=== PATIENT | male | born 1965 ===

== ENCOUNTER 2017-07-26 12:59 | Observation (INO) | payer SELFPAY ==
[2017-07-26] MEDS ORDERED: Aspirin 325 mg EC Tablets PO STA (13:18)
[2017-07-26 13:35] LABS: BASO % 0.3 % (0.0-2.0); EOS % 0.2 % (0.0-4.0); HEMOGLOBIN 15.1 g/dL (12.0-18.0); MEAN CORPUSCULAR HEMOGLOBIN 30.7 pg (27.0-31.0); MEAN CORPUSCULAR HGB CONC 34.8 g/dL (33.0-37.0); MEAN PLATELET VOLUME 11.1 fL (7.2-11.7); MONO # 0.3 K/uL (0.0-0.8); MONO % 5.7 % (0.0-10.0); NEUT # 4.1 K/uL (1.8-7.0); NEUT % 74.8 % (50.0-75.0); RBC 4.92 Mil/uL (4.40-5.90); RED CELL DISTRIBUTION WIDTH 13.1 % (11.5-14.5); WHITE BLOOD COUNT 5.5 K/uL (4.8-10.8)
[2017-07-26 13:47] LABS: ALB/GLOB RATIO 1.3 (1.0-2.1); ALBUMIN 4.3 g/dL (3.5-5.0); ALT/SGPT 24 U/L (21-72); AST/SGOT 30 U/L (17-59); BLOOD UREA NITROGEN 18 mg/dL (9-20); CALCIUM 8.7 mg/dl (8.6-10.4); GFR AFRICAN-AMERICAN > 60; GFR NON-AFRICAN AMERICAN > 60; LIPASE 124 U/L (23-300)
[2017-07-26 13:57] LABS: D DIMER < 200 ng/mlDDU (0-243); INR 0.9; PARTIAL THROMBOPLASTIN TIME 29 SECONDS (21-34); PROTHROMBIN TIME 10.7 SECONDS (9.7-12.2)
[2017-07-26 13:58] LABS: B-TYPE NATRIURETIC PEPTIDE 25.5 pg/mL (0-450)
--- NOTE | 2017-07-26 14:01 | RAD ---
PROCEDURE: CHEST RADIOGRAPH, 1 VIEW HISTORY: chest pain COMPARISON: There is no prior similar study available for comparison FINDINGS: LUNGS: There is no evidence of focal infiltrate or consolidation in the lungs PLEURA: No pneumothorax or pleural fluid seen. CARDIOVASCULAR: Normal. OSSEOUS STRUCTURES: No significant abnormalities. VISUALIZED UPPER ABDOMEN: Normal. OTHER FINDINGS: None. IMPRESSION: No active disease.
[2017-07-26] MEDS ORDERED: Sodium Chloride 0.9% 1,000 ML IV ONE (14:13)
[2017-07-26] MEDS ORDERED: Sodium Chloride 0.9% 1,000 ML ONE (14:26)
[2017-07-26 14:41] LABS: FREE T4 1.03 ng/dL (0.78-2.19)
[2017-07-26 14:49] LABS: URINE BILIRUBIN NEGATIVE (NEGATIVE); URINE BLOOD NEGATIVE (NEGATIVE); URINE CLARITY Clear (Clear); URINE COLOR Yellow (YELLOW); URINE GLUCOSE (UA) 1+ mg/dL (Normal); URINE LEUKOCYTE ESTERASE NEG Leu/uL (Negative); URINE PROTEIN NEGATIVE (NEGATIVE)
[2017-07-26 15:11] LABS: BARBITURATES, UR NEGATIVE (NEGATIVE); BENZODIAZEPINES, UR NEGATIVE (NEGATIVE); OPIATES, UR NEGATIVE (NEGATIVE); PHENCYCLIDINE, UR NEGATIVE (NEGATIVE)
--- NOTE | 2017-07-26 15:37 | C.PDOC ---
Time Seen by Provider: 07/26/17 13:12 Chief Complaint (Nursing): Chest Pain History Per: Patient Onset/Duration Of Symptoms: Hrs (since this morning) Current Symptoms Are (Timing): Still Present Severity: Moderate Quality: "Pain" Associated Symptoms: denies: Syncope Additional History Per: Prior Records Past Medical History Reviewed: Historical Data, Nursing Documentation, Vital Signs Vital Signs: Last Vital Signs Temp 99.4 F 07/26/17 13:02 Pulse 98 H 07/26/17 15:28 Resp 18 07/26/17 15:28 BP 131/76 07/26/17 15:28 Pulse Ox 98 07/26/17 15:37 - Medical History PMH: No Chronic Diseases Surgical History: No Surg Hx - [facility] Procedures CLOSURE SKIN & SUBCUTANEOUS NEC (04/20/14) Family History: States: Unknown Family Hx - Social History Hx Tobacco Use: No Hx Alcohol Use: Yes Hx Substance Use: No - Immunization History Hx Tetanus Toxoid Vaccination: No Hx Influenza Vaccination: No Hx Pneumococcal Vaccination: No Review Of Systems Except As Marked, All Systems Reviewed And Found Negative. Constitutional: Negative for: Fever, Weakness Cardiovascular: Positive for: Chest Pain Respiratory: Negative for: Shortness of Breath, Hemoptysis Gastrointestinal: Negative for: Vomiting, Abdominal Pain Musculoskeletal: Negative for: Neck Pain, Back Pain, Leg Pain Skin: Negative for: Rash Neurological: Negative for: Weakness, Numbness Physical Exam - Physical Exam Appears: Non-toxic, No Acute Distress Skin: Normal Color, Warm, Dry, No Rash Head: Atraumatic, Normacephalic Eye(s): bilateral: Normal Inspection, PERRL, EOMI Neck: Normal ROM, Supple Cardiovascular: Rhythm Regular (tachycardia) Respiratory: Normal Breath Sounds, No Accessory Muscle Use Gastrointestinal/Abdominal: Soft, No Tenderness Back: No CVA Tenderness Extremity: Normal ROM, No Pedal Edema, No Calf Tenderness Neurological/Psych: Oriented x3, Normal Motor, Normal Sensation ED Course And Treatment - Laboratory Results Result Diagrams: 07/26/17 13:30 07/26/17 13:30 Lab Interpretation: No Acute Changes ECG: Interpreted By Me, Viewed By Me ECG Rhythm: Sinus Tachycardia Rate From EC O2 Sat by Pulse Oximetry: 98 Pulse Ox Interpretation: Normal - Radiology CXR: Viewed By Me, Read By Radiologist CXR Interpretation: Yes: No Acute Disease Progress Note: Pt is no longer tachycardic. Chest pain mostly resolved. Reevaluation Time: 15:30 Reassessment Condition: Improved Progress - Interventions Interventions:: Observation, Intravenous fluid, Oxygen - Medications Administered Oral: Aspirin - Data Reviewed Data Reviewed: Lab, Diagnostic imaging, EKG, Old records - Patient Status Patient status: Mostly improved - Continuity of Care Discussed patient case with:: Patient, ED Nurse Disposition Discussed With : Zeus Hollingsworth Comment: He accepted pt on his service. Doctor Will See Patient In The: Hospital Counseled Patient/Family Regarding: Studies Performed, Diagnosis - Disposition Disposition: HOSPITALIZED Disposition Time: 15:41 Condition: FAIR - Clinical Impression Clinical Impression: Acute chest pain
--- NOTE | 2017-07-26 16:29 | CP.PCM.HP ---
<Rut Murray - Last Filed: 07/26/17 16:50> History of Present Illness - History of Present Illness History of Present Illness: CC - "Chest pressure" HPI - 51 year old male with no past medical history presents today complaining of chest pressure which started this morning at 8:30 AM while he was getting ready for the day in his bathroom. He states this is the first time he has had this chest pressure. Nothing makes it better or worse but states it has decreased in nature since arriving to the ED. Patient denies radiation of the pressure. Denies palpitations, N/V, diaphoresis, pain in the arms or jaw, and denies shortness of breath. He states she can walk many blocks, use his bicycle and climb the states without having this chest pressure or becoming short of breath. Patient states she has not seen a doctor or had his bloodwork checked in a long time. Patient has a history of binge drinking alcohol. He states his last drink was yesterday evening and that he had 3 beers. He states he drinks alcohol 3-4 times a week. He states he does not get any withdrawal symptoms if he does not drink alcohol. PMHx - denies Meds - none Allergies - NKDA Famhx - father prediabetic had prostate cancer, and mother was prediabetic Surg - denies Social hx - patient smoke one pack of cigarettes a day for 5 years quit 2-3 months ago, Drinks beers about 3-4 times a week (last drink last night, denies withdrawal symptoms, denies drug use PMD - none Present on Admission - Present on Admission Any Indicators Present on Admission: No Review of Systems - Constitutional Constitutional: absent: Chills, Fever - EENT Eyes: absent: Blurred Vision, Change in Vision - Cardiovascular Cardiovascular: Chest Pain. absent: Chest Pain at Rest, Leg Edema, Palpitations , Pedal Edema, Syncope - Respiratory Respiratory: absent: Cough, Dyspnea, Dyspnea on Exertion - Gastrointestinal Gastrointestinal: absent: Constipation, Diarrhea, Nausea, Vomiting - Genitourinary Genitourinary: absent: Change in Urinary Stream, Difficulty Urinating - Musculoskeletal Musculoskeletal: absent: Numbness, Tingling Past Patient History - Tetanus Immunizations Tetanus Immunization: Unknown - Past Social History Smoking Status: Light Smoker < 10 Cigarettes Daily - HEENT Hx Blind: Yes (Blind Lt. eye) - PSYCHIATRIC Hx Substance Use: No - SURGICAL HISTORY Hx Surgeries: No - ANESTHESIA Hx Anesthesia: No Hx Anesthesia Reactions: No Meds Allergies/Adverse Reactions: Allergies Allergy/AdvReac Type Severity Reaction Status Date / Time No Known Allergies Allergy Verified 07/26/17 13:07 Physical Exam - Constitutional Appears: Non-toxic, No Acute Distress - Head Exam Head Exam: ATRAUMATIC, NORMAL INSPECTION - Eye Exam Eye Exam: EOMI, PERRL Pupil Exam: NORMAL ACCOMODATION - ENT Exam ENT Exam: Mucous Membranes Moist - Respiratory Exam Respiratory Exam: Clear to Auscultation Bilateral, NORMAL BREATHING PATTERN. absent: Respiratory Distress - Cardiovascular Exam Cardiovascular Exam: Tachycardia, REGULAR RHYTHM, +S1, +S2 - GI/Abdominal Exam GI & Abdominal Exam: Normal Bowel Sounds, Soft. absent: Distended, Firm, Guarding, Tenderness - Extremities Exam Extremities exam: Positive for: normal inspection. Negative for: calf tenderness, pedal edema - Back Exam Back exam: NORMAL INSPECTION. absent: CVA tenderness (L), CVA tenderness (R), paraspinal tenderness - Neurological Exam Neurological exam: Alert, Oriented x3 - Psychiatric Exam Psychiatric exam: Normal Affect, Normal Mood - Skin Skin Exam: Intact, Normal Color, Warm Additional comments: mildly flushed Results - Vital Signs Recent Vital Signs: Last Vital Signs Temp 98.9 F 07/26/17 16:15 Pulse 81 07/26/17 16:15 Resp 17 07/26/17 16:15 BP 131/76 07/26/17 15:28 Pulse Ox 98 07/26/17 16:15 - Labs Result Diagrams: 07/26/17 13:30 07/26/17 13:30 Labs: Laboratory Results - last 24 hr 07/26/17 07/26/17 07/26/17 13:30 13:30 13:30 WBC 5.5 RBC 4.92 Hgb 15.1 Hct 43.3 MCV 88.0 MCH 30.7 MCHC 34.8 RDW 13.1 Plt Count 172 MPV 11.1 Neut % (Auto) 74.8 Lymph % (Auto) 19.0 L [place] % (Auto) 5.7 Eos % (Auto) 0.2 Baso % (Auto) 0.3 Neut # (Auto) 4.1 Lymph # (Auto) 1.0 [place] # (Auto) 0.3 Eos # (Auto) 0.0 Baso # (Auto) 0.0 PT 10.7 INR 0.9 APTT 29 D-Dimer, Quantitative < 200 Sodium 146 Potassium 3.6 Chloride 106 Carbon Dioxide 25 Anion Gap 19 BUN 18 Creatinine 0.8 Est GFR ( Amer) > 60 Est GFR (Non-Af Amer) > 60 Random Glucose 162 H Calcium 8.7 Total Bilirubin 0.7 AST 30 ALT 24 Alkaline Phosphatase 78 Troponin I < 0.0120 NT-Pro-B Natriuret Pep 25.5 Total Protein 7.6 Albumin 4.3 Globulin 3.4 Albumin/Globulin Ratio 1.3 Lipase 124 Free T4 TSH 3rd Generation Urine Color Urine Clarity Urine pH Ur Specific [place] Urine Protein Urine Glucose (UA) Urine Ketones Urine Blood Urine Nitrate Urine Bilirubin Urine Urobilinogen Ur Leukocyte Esterase Urine WBC (Auto) Urine RBC (Auto) Urine Opiates Screen Urine Methadone Screen Ur Barbiturates Screen Ur Phencyclidine Scrn Ur Amphetamines Screen U Benzodiazepines Scrn U Oth Cocaine Metabols U Cannabinoids Screen Alcohol, Quantitative < 10 07/26/17 07/26/17 07/26/17 13:38 14:49 15:09 WBC RBC Hgb Hct MCV MCH MCHC RDW Plt Count MPV Neut % (Auto) Lymph % (Auto) [place] % (Auto) Eos % (Auto) Baso % (Auto) Neut # (Auto) Lymph # (Auto) [place] # (Auto) Eos # (Auto) Baso # (Auto) PT INR APTT D-Dimer, Quantitative Sodium Potassium Chloride Carbon Dioxide Anion Gap BUN Creatinine Est GFR ( Amer) Est GFR (Non-Af Amer) Random Glucose Calcium Total Bilirubin AST ALT Alkaline Phosphatase Troponin I NT-Pro-B Natriuret Pep Total Protein Albumin Globulin Albumin/Globulin Ratio Lipase Free T4 1.03 TSH 3rd Generation 0.65 Urine Color Yellow Urine Clarity Clear Urine pH 5.0 Ur Specific [place] 1.025 Urine Protein Negative Urine Glucose (UA) 1+ H Urine Ketones Trace Urine Blood Negative Urine Nitrate Negative Urine Bilirubin Negative Urine Urobilinogen 2.0 Ur Leukocyte Esterase Neg Urine WBC (Auto) < 1 Urine RBC (Auto) 1 Urine Opiates Screen Negative Urine Methadone Screen Negative Ur Barbiturates Screen Negative Ur Phencyclidine Scrn Negative Ur Amphetamines Screen Negative U Benzodiazepines Scrn Negative U Oth Cocaine Metabols Negative U Cannabinoids Screen Negative Alcohol, Quantitative Assessment & Plan - Assessment and Plan (Free Text) Assessment: Chest pressure r/o ACS EKG - sinus tachycardia no ST changes Trop #1 - negative, will trend given 325mg ASA in the ED Chest X ray - no active disease TSH wnl f/u am labs, HbA1c, lipid panel Elevated blood sugar level no hx of diabetes f/u HbA1c Hx Alcohol Use UDS negative Alcohol <10 Last drink was last night Thiamine/Folic Acid/MV seizure precautions/CIWA monitor for signs of withdrawal Prophylaxis Patient is ambulating, SCDs GI - not indicated Heart healthy mod consistne carb diet Dispo: likely home tomorrow pending [facility]ONA <Zaki Tucker - Last Filed: 07/27/17 11:47> Results - Vital Signs Recent Vital Signs: Last Vital Signs Temp 97.5 F L 07/27/17 07:00 Pulse 83 07/27/17 07:57 Resp 18 07/27/17 07:00 BP 139/67 07/27/17 07:00 Pulse Ox 98 07/27/17 07:00 - Labs Result Diagrams: 07/27/17 02:38 07/27/17 02:38 Labs: Laboratory Results - last 24 hr 07/26/17 07/26/17 07/26/17 13:30 13:30 13:30 WBC 5.5 RBC 4.92 Hgb 15.1 Hct 43.3 MCV 88.0 MCH 30.7 MCHC 34.8 RDW 13.1 Plt Count 172 MPV 11.1 Neut % (Auto) 74.8 Lymph % (Auto) 19.0 L [place] % (Auto) 5.7 Eos % (Auto) 0.2 Baso % (Auto) 0.3 Neut # (Auto) 4.1 Lymph # (Auto) 1.0 [place] # (Auto) 0.3 Eos # (Auto) 0.0 Baso # (Auto) 0.0 PT 10.7 INR 0.9 APTT 29 D-Dimer, Quantitative < 200 Sodium 146 Potassium 3.6 Chloride 106 Carbon Dioxide 25 Anion Gap 19 BUN 18 Creatinine 0.8 Est GFR ( Amer) > 60 Est GFR (Non-Af Amer) > 60 Random Glucose 162 H Hemoglobin A1c Calcium 8.7 Phosphorus Magnesium Total Bilirubin 0.7 AST 30 ALT 24 Alkaline Phosphatase 78 Total Creatine Kinase CK-MB (Mass) Troponin I < 0.0120 NT-Pro-B Natriuret Pep 25.5 Total Protein 7.6 Albumin 4.3 Globulin 3.4 Albumin/Globulin Ratio 1.3 Triglycerides Cholesterol LDL Cholesterol Direct HDL Cholesterol Lipase 124 Vitamin B12 25-OH Vitamin D Total Folate Free T4 TSH 3rd Generation Urine Color Urine Clarity Urine pH Ur Specific [place] Urine Protein Urine Glucose (UA) Urine Ketones Urine Blood Urine Nitrate Urine Bilirubin Urine Urobilinogen Ur Leukocyte Esterase Urine WBC (Auto) Urine RBC (Auto) Urine Opiates Screen Urine Methadone Screen Ur Barbiturates Screen Ur Phencyclidine Scrn Ur Amphetamines Screen U Benzodiazepines Scrn U Oth Cocaine Metabols U Cannabinoids Screen Alcohol, Quantitative < 10 07/26/17 07/26/17 07/26/17 13:38 14:49 15:09 WBC RBC Hgb Hct MCV MCH MCHC RDW Plt Count MPV Neut % (Auto) Lymph % (Auto) [place] % (Auto) Eos % (Auto) Baso % (Auto) Neut # (Auto) Lymph # (Auto) [place] # (Auto) Eos # (Auto) Baso # (Auto) PT INR APTT D-Dimer, Quantitative Sodium Potassium Chloride Carbon Dioxide Anion Gap BUN Creatinine Est GFR ( Amer) Est GFR (Non-Af Amer) Random Glucose Hemoglobin A1c Calcium Phosphorus Magnesium Total Bilirubin AST ALT Alkaline Phosphatase Total Creatine Kinase CK-MB (Mass) Troponin I NT-Pro-B Natriuret Pep Total Protein Albumin Globulin Albumin/Globulin Ratio Triglycerides Cholesterol LDL Cholesterol Direct HDL Cholesterol Lipase Vitamin B12 25-OH Vitamin D Total Folate Free T4 1.03 TSH 3rd Generation 0.65 Urine Color Yellow Urine Clarity Clear Urine pH 5.0 Ur Specific [place] 1.025 Urine Protein Negative Urine Glucose (UA) 1+ H Urine Ketones Trace Urine Blood Negative Urine Nitrate Negative Urine Bilirubin Negative Urine Urobilinogen 2.0 Ur Leukocyte Esterase Neg Urine WBC (Auto) < 1 Urine RBC (Auto) 1 Urine Opiates Screen Negative Urine Methadone Screen Negative Ur Barbiturates Screen Negative Ur Phencyclidine Scrn Negative Ur Amphetamines Screen Negative U Benzodiazepines Scrn Negative U Oth Cocaine Metabols Negative U Cannabinoids Screen Negative Alcohol, Quantitative 07/26/17 07/26/17 07/26/17 20:01 20:01 20:01 WBC RBC Hgb Hct MCV MCH MCHC RDW Plt Count MPV Neut % (Auto) Lymph % (Auto) [place] % (Auto) Eos % (Auto) Baso % (Auto) Neut # (Auto) Lymph # (Auto) [place] # (Auto) Eos # (Auto) Baso # (Auto) PT INR APTT D-Dimer, Quantitative Sodium Potassium Chloride Carbon Dioxide Anion Gap BUN Creatinine Est GFR ( Amer) Est GFR (Non-Af Amer) Random Glucose Hemoglobin A1c 5.6 Calcium Phosphorus 3.1 Magnesium 2.2 Total Bilirubin AST ALT Alkaline Phosphatase Total Creatine Kinase 77 CK-MB (Mass) 0.84 Troponin I < 0.0120 NT-Pro-B Natriuret Pep Total Protein Albumin Globulin Albumin/Globulin Ratio Triglycerides 83 Cholesterol 158 LDL Cholesterol Direct 92 HDL Cholesterol 55 Lipase Vitamin B12 251 25-OH Vitamin D Total 16.8 L Folate > 20.0 Free T4 TSH 3rd Generation Urine Color Urine Clarity Urine pH Ur Specific [place] Urine Protein Urine Glucose (UA) Urine Ketones Urine Blood Urine Nitrate Urine Bilirubin Urine Urobilinogen Ur Leukocyte Esterase Urine WBC (Auto) Urine RBC (Auto) Urine Opiates Screen Urine Methadone Screen Ur Barbiturates Screen Ur Phencyclidine Scrn Ur Amphetamines Screen U Benzodiazepines Scrn U Oth Cocaine Metabols U Cannabinoids Screen Alcohol, Quantitative 07/27/17 07/27/17 02:38 02:38 WBC 6.3 RBC 4.46 Hgb 13.6 Hct 39.5 MCV 88.6 MCH 30.5 MCHC 34.4 RDW 13.0 Plt Count 132 MPV 10.8 Neut % (Auto) 53.6 Lymph % (Auto) 36.0 [place] % (Auto) 8.5 Eos % (Auto) 1.6 Baso % (Auto) 0.3 Neut # (Auto) 3.4 Lymph # (Auto) 2.3 [place] # (Auto) 0.5 Eos # (Auto) 0.1 Baso # (Auto) 0.0 PT INR APTT D-Dimer, Quantitative Sodium 142 Potassium 3.7 Chloride 105 Carbon Dioxide 26 Anion Gap 14 BUN 18 Creatinine 0.8 Est GFR ( Amer) > 60 Est GFR (Non-Af Amer) > 60 Random Glucose 91 Hemoglobin A1c Calcium 8.3 L Phosphorus Magnesium Total Bilirubin 0.8 AST 23 ALT 22 Alkaline Phosphatase 60 Total Creatine Kinase 70 CK-MB (Mass) 0.76 Troponin I < 0.0120 NT-Pro-B Natriuret Pep Total Protein 6.4 Albumin 3.5 Globulin 3.0 Albumin/Globulin Ratio 1.2 Triglycerides Cholesterol LDL Cholesterol Direct HDL Cholesterol Lipase Vitamin B12 25-OH Vitamin D Total Folate Free T4 TSH 3rd Generation Urine Color Urine Clarity Urine pH Ur Specific [place] Urine Protein Urine Glucose (UA) Urine Ketones Urine Blood Urine Nitrate Urine Bilirubin Urine Urobilinogen Ur Leukocyte Esterase Urine WBC (Auto) Urine RBC (Auto) Urine Opiates Screen Urine Methadone Screen Ur Barbiturates Screen Ur Phencyclidine Scrn Ur Amphetamines Screen U Benzodiazepines Scrn U Oth Cocaine Metabols U Cannabinoids Screen Alcohol, Quantitative Attending/Attestation - Attestation I have personally seen and examined this patient.: Yes I have fully participated in the care of the patient.: Yes I have reviewed all pertinent clinical information: Yes Notes (Text): Patient was seen and examined by in the ER. Patient was lying comfortable,no distress and his heart rate improved.He drinks alcohol occasionally . last drink last night. No other cardiac rist factors noted.Mild chest pain.No signs of infection Admitted for chest pain rule out ACS /observation discussed with the resident. I agree with the resident's documentation of the assessment and the plan.
[2017-07-26] MEDS: Multiple Vitamins Tab PO SCH (17:36)
[2017-07-26 20:16] LABS: HDL CHOLESTEROL 55 mg/dL (30-70)
[2017-07-26 20:28] LABS: LDL CHOLESTEROL 92 mg/dL (0-129)
[2017-07-26 20:29] LABS: CK-MB 0.84 ng/mL (0.0-3.38)
[2017-07-26 21:22] LABS: FOLATE > 20.0 ng/mL
[2017-07-27 02:42] LABS: BASO % 0.3 % (0.0-2.0); EOS # 0.1 K/uL (0.0-0.7); EOS % 1.6 % (0.0-4.0); HEMOGLOBIN 13.6 g/dL (12.0-18.0); LYMPH # 2.3 K/uL (1.0-4.3); MEAN CELL VOLUME 88.6 fL (80.0-94.0); MEAN CORPUSCULAR HEMOGLOBIN 30.5 pg (27.0-31.0); MEAN CORPUSCULAR HGB CONC 34.4 g/dL (33.0-37.0); MEAN PLATELET VOLUME 10.8 fL (7.2-11.7); MONO # 0.5 K/uL (0.0-0.8); MONO % 8.5 % (0.0-10.0); NEUT # 3.4 K/uL (1.8-7.0); NEUT % 53.6 % (50.0-75.0); RBC 4.46 Mil/uL (4.40-5.90); WHITE BLOOD COUNT 6.3 K/uL (4.8-10.8)
[2017-07-27 02:56] LABS: ALB/GLOB RATIO 1.2 (1.0-2.1); ALBUMIN 3.5 g/dL (3.5-5.0); ALT/SGPT 22 U/L (21-72); AST/SGOT 23 U/L (17-59); BLOOD UREA NITROGEN 18 mg/dL (9-20); CALCIUM 8.3 mg/dl (8.6-10.4); GFR AFRICAN-AMERICAN > 60; GFR NON-AFRICAN AMERICAN > 60
[2017-07-27 03:05] LABS: CK-MB 0.76 ng/mL (0.0-3.38)
[2017-07-27 08:02] VITALS: BP 139/67; RESP 18; TEMP 97.5; O2SAT 98
[2017-07-27 08:03] VITALS: PULSE 83
--- NOTE | 2017-07-27 09:02 | CP.PCM.DIS ---
<Rut Murray - Last Filed: 07/27/17 10:40> Provider - Provider Date of Admission: 07/26/17 15:42 Attending physician: Zeus Hollingsworth DO Primary care physician: none Consults: none Time Spent in preparation of Discharge (in minutes): 35 Diagnosis - Discharge Diagnosis (1) Acute chest pain Status: Acute Comment: resolved. (2) Alcohol abuse with uncomplicated intoxication Status: Acute Comment: no signs of withdrawal Hospital Course - Lab Results Lab Results: Most Recent Lab Values WBC 6.3 K/uL (4.8-10.8) 07/27/17 02:38 RBC 4.46 Mil/uL (4.40-5.90) 07/27/17 02:38 Hgb 13.6 g/dL (12.0-18.0) 07/27/17 02:38 Hct 39.5 % (35.0-51.0) 07/27/17 02:38 MCV 88.6 fL (80.0-94.0) 07/27/17 02:38 MCH 30.5 pg (27.0-31.0) 07/27/17 02:38 MCHC 34.4 g/dL (33.0-37.0) 07/27/17 02:38 RDW 13.0 % (11.5-14.5) 07/27/17 02:38 Plt Count 132 K/uL (130-400) 07/27/17 02:38 MPV 10.8 fL (7.2-11.7) 07/27/17 02:38 Neut % (Auto) 53.6 % (50.0-75.0) 07/27/17 02:38 Lymph % (Auto) 36.0 % (20.0-40.0) 07/27/17 02:38 [place] % (Auto) 8.5 % (0.0-10.0) 07/27/17 02:38 Eos % (Auto) 1.6 % (0.0-4.0) 07/27/17 02:38 Baso % (Auto) 0.3 % (0.0-2.0) 07/27/17 02:38 Neut # (Auto) 3.4 K/uL (1.8-7.0) 07/27/17 02:38 Lymph # (Auto) 2.3 K/uL (1.0-4.3) 07/27/17 02:38 [place] # (Auto) 0.5 K/uL (0.0-0.8) 07/27/17 02:38 Eos # (Auto) 0.1 K/uL (0.0-0.7) 07/27/17 02:38 Baso # (Auto) 0.0 K/uL (0.0-0.2) 07/27/17 02:38 PT 10.7 SECONDS (9.7-12.2) 07/26/17 13:30 INR 0.9 07/26/17 13:30 APTT 29 SECONDS (21-34) 07/26/17 13:30 D-Dimer, Quantitative < 200 ng/mlDDU (0-243) 07/26/17 13:30 Sodium 142 mmol/L (132-148) 07/27/17 02:38 Potassium 3.7 mmol/L (3.6-5.2) 07/27/17 02:38 Chloride 105 mmol/L (98-107) 07/27/17 02:38 Carbon Dioxide 26 mmol/L (22-30) 07/27/17 02:38 Anion Gap 14 (10-20) 07/27/17 02:38 BUN 18 mg/dL (9-20) 07/27/17 02:38 Creatinine 0.8 mg/dL (0.8-1.5) 07/27/17 02:38 Est GFR ( Amer) > 60 07/27/17 02:38 Est GFR (Non-Af Amer) > 60 07/27/17 02:38 Random Glucose 91 mg/dL (75-110) 07/27/17 02:38 Calcium 8.3 mg/dl (8.6-10.4) L 07/27/17 02:38 Phosphorus 3.1 mg/dL (2.5-4.5) 07/26/17 20:01 Magnesium 2.2 mg/dL (1.6-2.3) 07/26/17 20:01 Total Bilirubin 0.8 mg/dL (0.2-1.3) 07/27/17 02:38 AST 23 U/L (17-59) 07/27/17 02:38 ALT 22 U/L (21-72) 07/27/17 02:38 Alkaline Phosphatase 60 U/L (38-126) 07/27/17 02:38 Total Creatine Kinase 70 U/L (55-170) 07/27/17 02:38 CK-MB (Mass) 0.76 ng/mL (0.0-3.38) 07/27/17 02:38 Troponin I < 0.0120 ng/mL (0.00-0.120) 07/27/17 02:38 NT-Pro-B Natriuret Pep 25.5 pg/mL (0-450) 07/26/17 13:30 Total Protein 6.4 g/dL (6.3-8.3) 07/27/17 02:38 Albumin 3.5 g/dL (3.5-5.0) 07/27/17 02:38 Globulin 3.0 gm/dL (2.2-3.9) 07/27/17 02:38 Albumin/Globulin Ratio 1.2 (1.0-2.1) 07/27/17 02:38 Triglycerides 83 mg/dL (0-149) 07/26/17 20:01 Cholesterol 158 mg/dL (0-199) 07/26/17 20:01 LDL Cholesterol Direct 92 mg/dL (0-129) 07/26/17 20:01 HDL Cholesterol 55 mg/dL (30-70) 07/26/17 20:01 Lipase 124 U/L (23-300) 07/26/17 13:30 Vitamin B12 251 pg/mL (239-931) 07/26/17 20:01 25-OH Vitamin D Total 16.8 NG/ML (30.0-100.0) L 07/26/17 20:01 Folate > 20.0 ng/mL 07/26/17 20:01 Free T4 1.03 ng/dL (0.78-2.19) 07/26/17 13:38 TSH 3rd Generation 0.65 mIU/L (0.46-4.68) 07/26/17 13:38 Urine Color Yellow (YELLOW) 07/26/17 15: Urine Clarity Clear (Clear) 07/26/17 15: Urine pH 5.0 (5.0-8.0) 07/26/17 15:09 Ur Specific [place] 1.025 (1.003-1.030) 07/26/17 15:09 Urine Protein Negative mg/dL (NEGATIVE) 07/26/17 15:09 Urine Glucose (UA) 1+ mg/dL (Normal) H 07/26/17 15:09 Urine Ketones Trace mg/dL (NEGATIVE) 07/26/17 15:09 Urine Blood Negative (NEGATIVE) 07/26/17 15:09 Urine Nitrate Negative (NEGATIVE) 07/26/17 15:09 Urine Bilirubin Negative (NEGATIVE) 07/26/17 15:09 Urine Urobilinogen 2.0 mg/dL (0.2-1.0) 07/26/17 15:09 Ur Leukocyte Esterase Neg Lv/uL (Negative) 07/26/17 15:09 Urine WBC (Auto) < 1 /hpf (0-5) 07/26/17 15:09 Urine RBC (Auto) 1 /hpf (0-3) 07/26/17 15:09 Urine Opiates Screen Negative (NEGATIVE) 07/26/17 14:49 Urine Methadone Screen Negative (NEGATIVE) 07/26/17 14:49 Ur Barbiturates Screen Negative (NEGATIVE) 07/26/17 14:49 Ur Phencyclidine Scrn Negative (NEGATIVE) 07/26/17 14:49 Ur Amphetamines Screen Negative (NEGATIVE) 07/26/17 14:49 U Benzodiazepines Scrn Negative (NEGATIVE) 07/26/17 14:49 U Oth Cocaine Metabols Negative (NEGATIVE) 07/26/17 14:49 U Cannabinoids Screen Negative (NEGATIVE) 07/26/17 14:49 Alcohol, Quantitative < 10 mg/dl (0-10) 07/26/17 13:30 - Hospital Course Hospital Course: PMHx - denies Meds - none Allergies - NKDA Famhx - father prediabetic had prostate cancer, and mother was prediabetic Surg - denies Social hx - patient smoke one pack of cigarettes a day for 5 years quit 2-3 months ago, Drinks beers about 3-4 times a week (last drink last night, denies withdrawal symptoms, denies drug use PMD - none On admission: 51 year old male with no past medical history presents today complaining of chest pressure which started this morning at 8:30 AM while he was getting ready for the day in his bathroom. He states this is the first time he has had this chest pressure. Nothing makes it better or worse but states it has decreased in nature since arriving to the ED. Patient denies radiation of the pressure. Denies palpitations, N/V, diaphoresis, pain in the arms or jaw, and denies shortness of breath. He states she can walk many blocks, use his bicycle and climb the states without having this chest pressure or becoming short of breath. Patient states she has not seen a doctor or had his bloodwork checked in a long time. Patient has a history of binge drinking alcohol. He states his last drink was yesterday evening and that he had 3 beers. He states he drinks alcohol 3-4 times a week. He states he does not get any withdrawal symptoms if he does not drink alcohol. During hospital stay: Troponins and EKG were normal. Patient's chest pressure resolved. All patient' slab values were normal except vitamin D was very low and B 12 was low as well. Patient was told he would need to take a multivitamin and vitamin D at home. He will need to follow up in the clinic for his HbA1c level. No signs of withdrawal were observed during his stay. Patient is stable for discharge home. He is to call and make and appointment at the [facility] for post hospital follow up . Patient is to stop drinking alcohol. He is to take vitamin D orally once a week for 4 months. He is also to take a multivitamin daily. All instructions explained to the patient and he agrees. Patient is to return to the emergency room if symptoms return. (Please note this is just a summary of hospital events. Please refer to the EMR for full admission details.) For clinic followup: Patient was given script for Vit D 50,000 U to take weekly with 3 refills. He was told to take a multivitamin daily Advised to stpo drinking alcohol. He will need to follow up in the clinic for his HbA1c level. He will need ref in September for colonoscopy and PSA for screening. Would consider outpatient stress test if this pain reoccurs. Discharge Exam - Head Exam Head Exam: ATRAUMATIC, NORMAL INSPECTION - Eye Exam Eye Exam: EOMI, Normal appearance, PERRL Pupil Exam: NORMAL ACCOMODATION - ENT Exam ENT Exam: Normal Exam - Neck Exam Neck exam: Full Rom - Respiratory Exam Respiratory Exam: Clear to PA & Lateral, NORMAL BREATHING PATTERN. absent: Respiratory Distress - Cardiovascular Exam Cardiovascular Exam: REGULAR RHYTHM, +S1, +S2 - GI/Abdominal Exam GI & Abdominal Exam: Normal Bowel Sounds, Soft. absent: Distended, Firm, Guarding, Tenderness - Extremities Exam Extremities exam: normal inspection - Back Exam Back exam: NORMAL INSPECTION - Neurological Exam Neurological exam: Alert, CN II-XII Intact, Oriented x3 - Psychiatric Exam Psychiatric exam: Normal Affect, Normal Mood - Skin Skin Exam: Dry, Intact, Normal Color, Warm Discharge Plan - Discharge Medications Prescriptions: Cholecalciferol (Vitamin D3) [Vitamin D3] 50,000 unit PO QWK #4 capsule - Follow Up Plan Condition: GOOD Disposition: HOME/ ROUTINE Instructions: Chest Pain, Chest Pain (DC), Alcohol Withdrawal, Alcohol Withdrawal (DC), Alcohol Abuse and Alcoholism (DC) Additional Instructions: Patient is stable for discharge home. He is to call and make and appointment at the [facility] for post hospital follow up . Patient is to stop drinking alcohol. He is to take vitamin D orally once a week for 4 months. He is also to take a multivitamin daily. All instructions explained to the patient and he agrees. Patient is to return to the emergency room if symptoms return. Referrals: [facility] at [facility] [Outside] <Zaki Tucker - Last Filed: 07/27/17 11:55> Provider - Provider Date of Admission: 07/26/17 15:42 Attending physician: Zeus Hollingsworth, [facility] Course - Lab Results Lab Results: Most Recent Lab Values WBC 6.3 K/uL (4.8-10.8) 07/27/17 02:38 RBC 4.46 Mil/uL (4.40-5.90) 07/27/17 02:38 Hgb 13.6 g/dL (12.0-18.0) 07/27/17 02:38 Hct 39.5 % (35.0-51.0) 07/27/17 02:38 MCV 88.6 fL (80.0-94.0) 07/27/17 02:38 MCH 30.5 pg (27.0-31.0) 07/27/17 02:38 MCHC 34.4 g/dL (33.0-37.0) 07/27/17 02:38 RDW 13.0 % (11.5-14.5) 07/27/17 02:38 Plt Count 132 K/uL (130-400) 07/27/17 02:38 MPV 10.8 fL (7.2-11.7) 07/27/17 02:38 Neut % (Auto) 53.6 % (50.0-75.0) 07/27/17 02:38 Lymph % (Auto) 36.0 % (20.0-40.0) 07/27/17 02:38 [place] % (Auto) 8.5 % (0.0-10.0) 07/27/17 02:38 Eos % (Auto) 1.6 % (0.0-4.0) 07/27/17 02:38 Baso % (Auto) 0.3 % (0.0-2.0) 07/27/17 02:38 Neut # (Auto) 3.4 K/uL (1.8-7.0) 07/27/17 02:38 Lymph # (Auto) 2.3 K/uL (1.0-4.3) 07/27/17 02:38 [place] # (Auto) 0.5 K/uL (0.0-0.8) 07/27/17 02:38 Eos # (Auto) 0.1 K/uL (0.0-0.7) 07/27/17 02:38 Baso # (Auto) 0.0 K/uL (0.0-0.2) 07/27/17 02:38 PT 10.7 SECONDS (9.7-12.2) 07/26/17 13:30 INR 0.9 07/26/17 13:30 APTT 29 SECONDS (21-34) 07/26/17 13:30 D-Dimer, Quantitative < 200 ng/mlDDU (0-243) 07/26/17 13:30 Sodium 142 mmol/L (132-148) 07/27/17 02:38 Potassium 3.7 mmol/L (3.6-5.2) 07/27/17 02:38 Chloride 105 mmol/L (98-107) 07/27/17 02:38 Carbon Dioxide 26 mmol/L (22-30) 07/27/17 02:38 Anion Gap 14 (10-20) 07/27/17 02:38 BUN 18 mg/dL (9-20) 07/27/17 02:38 Creatinine 0.8 mg/dL (0.8-1.5) 07/27/17 02:38 Est GFR ( Amer) > 60 07/27/17 02:38 Est GFR (Non-Af Amer) > 60 07/27/17 02:38 Random Glucose 91 mg/dL (75-110) 07/27/17 02:38 Hemoglobin A1c 5.6 % (4.2-6.5) 07/26/17 20:01 Calcium 8.3 mg/dl (8.6-10.4) L 07/27/17 02:38 Phosphorus 3.1 mg/dL (2.5-4.5) 07/26/17 20:01 Magnesium 2.2 mg/dL (1.6-2.3) 07/26/17 20:01 Total Bilirubin 0.8 mg/dL (0.2-1.3) 07/27/17 02:38 AST 23 U/L (17-59) 07/27/17 02:38 ALT 22 U/L (21-72) 07/27/17 02:38 Alkaline Phosphatase 60 U/L (38-126) 07/27/17 02:38 Total Creatine Kinase 70 U/L (55-170) 07/27/17 02:38 CK-MB (Mass) 0.76 ng/mL (0.0-3.38) 07/27/17 02:38 Troponin I < 0.0120 ng/mL (0.00-0.120) 07/27/17 02:38 NT-Pro-B Natriuret Pep 25.5 pg/mL (0-450) 07/26/17 13:30 Total Protein 6.4 g/dL (6.3-8.3) 07/27/17 02:38 Albumin 3.5 g/dL (3.5-5.0) 07/27/17 02:38 Globulin 3.0 gm/dL (2.2-3.9) 07/27/17 02:38 Albumin/Globulin Ratio 1.2 (1.0-2.1) 07/27/17 02:38 Triglycerides 83 mg/dL (0-149) 07/26/17 20:01 Cholesterol 158 mg/dL (0-199) 07/26/17 20:01 LDL Cholesterol Direct 92 mg/dL (0-129) 07/26/17 20:01 HDL Cholesterol 55 mg/dL (30-70) 07/26/17 20:01 Lipase 124 U/L (23-300) 07/26/17 13:30 Vitamin B12 251 pg/mL (239-931) 07/26/17 20:01 25-OH Vitamin D Total 16.8 NG/ML (30.0-100.0) L 07/26/17 20:01 Folate > 20.0 ng/mL 07/26/17 20:01 Free T4 1.03 ng/dL (0.78-2.19) 07/26/17 13:38 TSH 3rd Generation 0.65 mIU/L (0.46-4.68) 07/26/17 13:38 Urine Color Yellow (YELLOW) 07/26/17 15:09 Urine Clarity Clear (Clear) 07/26/17 15:09 Urine pH 5.0 (5.0-8.0) 07/26/17 15:09 Ur Specific [place] 1.025 (1.003-1.030) 07/26/17 15:09 Urine Protein Negative mg/dL (NEGATIVE) 07/26/17 15:09 Urine Glucose (UA) 1+ mg/dL (Normal) H 07/26/17 15:09 Urine Ketones Trace mg/dL (NEGATIVE) 07/26/17 15:09 Urine Blood Negative (NEGATIVE) 07/26/17 15:09 Urine Nitrate Negative (NEGATIVE) 07/26/17 15:09 Urine Bilirubin Negative (NEGATIVE) 07/26/17 15:09 Urine Urobilinogen 2.0 mg/dL (0.2-1.0) 07/26/17 15:09 Ur Leukocyte Esterase Neg Lv/uL (Negative) 07/26/17 15:09 Urine WBC (Auto) < 1 /hpf (0-5) 07/26/17 15:09 Urine RBC (Auto) 1 /hpf (0-3) 07/26/17 15:09 Urine Opiates Screen Negative (NEGATIVE) 07/26/17 14:49 Urine Methadone Screen Negative (NEGATIVE) 07/26/17 14:49 Ur Barbiturates Screen Negative (NEGATIVE) 07/26/17 14:49 Ur Phencyclidine Scrn Negative (NEGATIVE) 07/26/17 14:49 Ur Amphetamines Screen Negative (NEGATIVE) 07/26/17 14:49 U Benzodiazepines Scrn Negative (NEGATIVE) 07/26/17 14:49 U Oth Cocaine Metabols Negative (NEGATIVE) 07/26/17 14:49 U Cannabinoids Screen Negative (NEGATIVE) 07/26/17 14:49 Alcohol, Quantitative < 10 mg/dl (0-10) 07/26/17 13:30 Attending/Attestation - Attestation I have personally seen and examined this patient.: Yes I have fully participated in the care of the patient.: Yes I have reviewed all pertinent clinical information, including history, physical exam and plan: Yes Notes (Text): Patient was seen and examined by me. d/w the resident. we will discharge him home.follow at clinic I agree with the resident's documentation 07/27/17 11:54
[2017-07-27] MEDS: Multiple Vitamins Tab PO SCH (09:09)
--- NOTE | 2017-07-29 02:06 | CARD ---
APPROVED REPORT EKG Measurement Heart [id number] <Conclusion> Marked sinus bradycardia Abnormal ECG
== END 2017-07-27 09:39 | disposition home or self-care (01) ==
LOC: C.ER 12:59 → C.9E 15:42 → C.5S 16:19
PROVIDERS: ADMIT Hospitalist; ATTEND Hospitalist
DX: R07.9 Chest pain, unspecified (principal); Z87.891 Personal history of nicotine dependence; H54.62 Unqualified visual loss, left eye, normal vision right eye; R00.0 Tachycardia, unspecified; R73.9 Hyperglycemia, unspecified; F10.120 Alcohol abuse with intoxication, uncomplicated; Y90.0 Blood alcohol level of less than 20 mg/100 ml
CPT/HCPCS: 36415; 71045; 80053; 80061; 81001; 82306; 82607; 82746; 83036; 83690; 83735; 83880; 84100; 84439; 84443; 84484; 85025; 85378; 85610; 85730; 96360; 99285; G0378; G0480